=== PATIENT | female | born 1965 | race Two or more races ===

== ENCOUNTER 2018-03-22 07:11 | Day surgery (SDC) | payer OTHER ==
[~2018-03-22 07:11] MED LIST: CARVEDILOL25 MG PO; ECOTRIN81 MG PO; FLECAINIDE ACET50 MG PO; HYDROCHLOROTHIA25 MG PO; LATANOPROST2.5 ML OP; LOSARTAN POTASS50 MG PO
== END 2018-03-22 17:05 | disposition home or self-care (01) ==
LOC: CIR.AMB 07:11
DX: K60.1 Chronic anal fissure (principal); K92.1 Melena